=== PATIENT | female | born 1995 | race Two or more races ===

== ENCOUNTER 2018-12-09 02:57 | Emergency (ER) | payer MEDICAID ==
[~2018-12-09] VITALS: Ht 160 cm; Wt 72.6 kg
[2018-12-09 08:48] VITALS: BP 119/69
== END 2018-12-09 09:19 | disposition home or self-care (01) ==
LOC: ER 02:57 → EDBD 02:57 → ER 09:19
DX: S40.012A Contusion of left shoulder, initial encounter (principal); M54.2 Cervicalgia; R51 Headache; Z90.49 Acquired absence of other specified parts of digestive tract; Z88.0 Allergy status to penicillin; V43.62XA Car passenger injured in collision with other type car in traffic accident, initial encounter; Y93.89 Activity, other specified; Y92.488 Other paved roadways as the place of occurrence of the external cause; Y99.8 Other external cause status
CPT/HCPCS: 70450; 71045; 72125; 73000; 73030

== ENCOUNTER 2019-07-14 17:56 | Inpatient (IN) | payer MEDICAID ==
[~2019-07-14] VITALS: Ht 152.4 cm; Wt 87.0 kg
[2019-07-14 18:40] LABS: Urine Bacteria FEW /hpf (None Seen); Urine Blood 3+ /uL (Negative); Urine Mucus FEW (None Seen); Urine Specific Gravity 1.028 (1.001-1.035); Urine WBC 7 /hpf (0 - 5)
[2019-07-14 18:52] LABS: Basophils # (auto) 0 10 ^3/uL (0-0.2); Eosinophils # (auto) 0 10 ^3/uL (0-0.8); Lymphocytes # (auto) 1.8 10 ^3/uL (0.4-5.4); Mean Corpuscular Volume 70.2 fL (80.0-100.0); Monocytes # (auto) 0.6 10 ^3/uL (0-1.3); Neutrophils # (auto) 9.1 10 ^3/uL (1.6-8.6); Nucleated Red Blood Cells % 0.1 %
[2019-07-14 18:54] LABS: Basophils % (auto) 0.1 % (0.0-2.0); Hematocrit 37.9 % (36.0-46.0); Lymphocytes % (auto) 15.5 % (10.0-50.0); Mean Corpuscular Hemoglobin 22.2 pg (28.0-32.0); Mean Corpuscular Hgb Conc. 31.6 g/dL (32.0-36.0); Neutrophils % (auto) 79.4 % (37.0-80.0); Platelet Count (auto) 191 10^3/uL (140-450); Red Blood Cells 5.39 10^6/uL (4.0-5.20); Red Cell Distribution Width 15.8 % (11.8-14.3); White Blood Cell 11.5 10^3/uL (4.4-10.8)
[2019-07-14 19:04] LABS: Albumin 3.5 g/dL (3.4-5.0); Calcium 8.4 mg/dL (8.5-10.1); Potassium 3.7 mmol/L (3.5-5.1)
[2019-07-14 19:08] LABS: BUN/Creatinine Ratio 8.3; Bilirubin, Total 0.4 mg/dL (0.2-1.0); Total Protein 8.9 g/dL (6.4-8.2)
[2019-07-14] MEDS ORDERED: MORPHINE SULFATE 4 MG/ML SYR/VIAL IV ONE ×3 (20:00→22:45)
[2019-07-14] MEDS ORDERED: ONDANSETRON HCL 4 MG/2 ML VIAL IV ONE ×4 (20:00→23:15)
[2019-07-14] MEDS ORDERED: cefTRIAXone 1GM/50ML D5W 50 ML IV ONE ×2 (20:15→20:30)
[2019-07-14] MEDS ORDERED: metroNIDAZOLE 500MG/100ML 100 ML IV ONE ×2 (20:15→20:30)
[2019-07-14] MEDS ORDERED: SODIUM CHLORIDE 0.9% 1,000 ML IV ONE (20:45)
[2019-07-15] VITALS (8 sets, daily range): BP systolic 111–129; BP diastolic 63–77
[2019-07-15] MEDS: SODIUM CHLORIDE 0.9% 1,000 ML IV SCH ×2 (01:04→17:44)
[2019-07-15] MEDS ORDERED: MORPHINE SULFATE 4 MG/ML SYR/VIAL IV PRN (01:15)
[2019-07-15] MEDS ORDERED: ACETAMINOPHEN 325 MG TAB PO PRN (01:15)
[2019-07-15] MEDS ORDERED: HYDROcodone-ACET 5/325MG TAB PO PRN (01:15)
[2019-07-15] MEDS ORDERED: ONDANSETRON HCL 4 MG/2 ML VIAL IV PRN (01:15)
[2019-07-15] MEDS: metroNIDAZOLE 500MG/100ML 100 ML IV SCH ×3 (05:12→22:50)
[2019-07-15 07:50] LABS: Basophils # (auto) 0 10 ^3/uL (0-0.2); Eosinophils # (auto) 0 10 ^3/uL (0-0.8); Eosinophils % (auto) 0.5 % (0.0-7.0); Mean Corpuscular Hemoglobin 22.2 pg (28.0-32.0); Mean Corpuscular Hgb Conc. 31.3 g/dL (32.0-36.0); Monocytes # (auto) 0.6 10 ^3/uL (0-1.3); Red Cell Distribution Width 15.7 % (11.8-14.3)
[2019-07-15 07:53] LABS: Basophils % (auto) 0.2 % (0.0-2.0); Hematocrit 34.2 % (36.0-46.0); Hemoglobin 10.7 g/dL (12.2-16.2); Lymphocytes # (auto) 2.3 10 ^3/uL (0.4-5.4); Lymphocytes % (auto) 32.7 % (10.0-50.0); Mean Corpuscular Volume 70.8 fL (80.0-100.0); Monocytes % (auto) 9.2 % (0.0-12.0); Neutrophils % (auto) 57.4 % (37.0-80.0); Nucleated Red Blood Cells % 0.2 %; Platelet Count (auto) 174 10^3/uL (140-450); Red Blood Cells 4.83 10^6/uL (4.0-5.20)
[2019-07-15 08:19] LABS: Potassium 3.8 mmol/L (3.5-5.1)
[2019-07-15 08:24] LABS: BUN/Creatinine Ratio 8.5; Calcium 7.8 mg/dL (8.5-10.1)
[2019-07-15] MEDS ORDERED: MORPHINE SULF INJ 2 MG/ML SYRINGE 1ML IV PRN (15:45)
[2019-07-15 16:16] LABS: INR 1.08 (0.9-1.15)
[2019-07-15] MEDS ORDERED: cefTRIAXone 1GM/50ML D5W 50 ML IV SCH (21:00)
[2019-07-15] MEDS: PANTOPRAZOLE 40 MG TAB PO SCH (21:15)
[2019-07-16 05:00] VITALS: BP 125/78
[2019-07-16] MEDS: metroNIDAZOLE 500MG/100ML 100 ML IV SCH ×2 (05:11→14:00)
[2019-07-16 07:51] LABS: Basophils # (auto) 0 10 ^3/uL (0-0.2); Basophils % (auto) 0.3 % (0.0-2.0); Hemoglobin 10.7 g/dL (12.2-16.2); Lymphocytes # (auto) 1.8 10 ^3/uL (0.4-5.4); Lymphocytes % (auto) 38.4 % (10.0-50.0); Mean Corpuscular Hemoglobin 22.1 pg (28.0-32.0); Monocytes # (auto) 0.4 10 ^3/uL (0-1.3)
[2019-07-16 07:55] LABS: Eosinophils # (auto) 0.1 10 ^3/uL (0-0.8); Eosinophils % (auto) 1.2 % (0.0-7.0); Hematocrit 34.1 % (36.0-46.0); Mean Corpuscular Hgb Conc. 31.2 g/dL (32.0-36.0); Mean Corpuscular Volume 70.6 fL (80.0-100.0); Monocytes % (auto) 9.7 % (0.0-12.0); Neutrophils # (auto) 2.3 10 ^3/uL (1.6-8.6); Neutrophils % (auto) 50.4 % (37.0-80.0); Nucleated Red Blood Cells % 0.1 %; Platelet Count (auto) 153 10^3/uL (140-450); Red Blood Cells 4.83 10^6/uL (4.0-5.20); Red Cell Distribution Width 15.8 % (11.8-14.3); White Blood Cell 4.6 10^3/uL (4.4-10.8)
[2019-07-16 08:00] VITALS: BP 104/75
[2019-07-16 08:05] LABS: Albumin 2.9 g/dL (3.4-5.0); Potassium 3.7 mmol/L (3.5-5.1)
[2019-07-16 08:07] LABS: BUN/Creatinine Ratio 8.6
[2019-07-16 08:10] LABS: Bilirubin, Total 0.3 mg/dL (0.2-1.0); Total Protein 7.2 g/dL (6.4-8.2)
[2019-07-16] MEDS ORDERED: LIDOCAINE VISCOUS 2% 15ML UD ONE (08:52)
[2019-07-16] MEDS ORDERED: SODIUM CHLORIDE LOCK 10 ML ONE (08:52)
[2019-07-16] MEDS ORDERED: diphenhdrAMINE HCL 50 MG/1 ML VL ONE (08:52)
[2019-07-16 09:00] VITALS: BP 104/75
[2019-07-16] MEDS: PANTOPRAZOLE 40 MG TAB PO SCH (10:00)
[2019-07-16] MEDS: SODIUM CHLORIDE 0.9% 1,000 ML IV SCH (10:24)
[2019-07-16] MEDS: fentaNYL CITRATE 100 MCG/2 ML VL ONE ×2 (10:35→10:38)
[2019-07-16] MEDS: MIDAZOLAM HCL 5 MG/ML-1ML VIAL ONE ×2 (10:35→10:38)
[2019-07-16 13:00] VITALS: BP 107/65
[2019-07-16] MEDS ORDERED: PANT40T PO (15:11)
[2019-07-16 16:53] VITALS: BP_SYST 102; BP_SYST 103; BP_DIAS 63; BP_DIAS 73
[2019-07-18 11:21] LABS: Hepatitis A Ab IgM Negative
[2019-07-18 11:24] LABS: Hepatitis B Core IgM Negative; Hepatitis B Surface Antigen Negative (Negative); Hepatitis C Antibody Negative (Negative)
== END 2019-07-16 19:00 | disposition home or self-care (01) | DRG 241 ==
LOC: ER 17:56 → TELE-CENTR 17:57 → UNDOADMIN 17:57 → TELE 17:57
PROVIDERS: ADMIT Hospitalist; ATTEND Internal Medicine
PROC: 0DB68ZX Excision of Stomach, Via Natural or Artificial Opening Endoscopic, Diagnostic (ICD-10-PCS; principal; 2019-07-16 10:33)
DX: K29.70 Gastritis, unspecified, without bleeding (principal); A05.9 Bacterial foodborne intoxication, unspecified; K52.9 Noninfective gastroenteritis and colitis, unspecified; K62.5 Hemorrhage of anus and rectum; N83.209 Unspecified ovarian cyst, unspecified side; Z88.0 Allergy status to penicillin; Z79.899 Other long term (current) drug therapy; Z90.49 Acquired absence of other specified parts of digestive tract; Z82.49 Family history of ischemic heart disease and other diseases of the circulatory system; Z83.3 Family history of diabetes mellitus; Z80.43 Family history of malignant neoplasm of testis
CPT/HCPCS: 36415; 43239; 74176; 76856; 80048; 80053; 80074; 80320; 81001; 84702; 85025; 85610; 96365; 96367; 96375; G0378; J0696; J2250; J2405; J3490

== ENCOUNTER 2021-07-02 22:41 | Emergency (ER) | payer MEDICAID ==
[~2021-07-02] VITALS: Ht 160 cm; Wt 104.3 kg
[~2021-07-02 22:41] MED LIST: PANT40T PO
[2021-07-03] MEDS ORDERED: MAGNESIUM CITRATE SOLUTION 300 ML BTL PO ONE (01:00)
[2021-07-03 01:26] LABS: Urine Bacteria FEW /hpf (None Seen); Urine Blood Negative /uL (Negative); Urine Mucus FEW (None Seen); Urine Specific Gravity 1.044 (1.001-1.035); Urine WBC 7 /hpf (0 - 5)
[2021-07-03 01:36] LABS: Alcohol, Urine < 3.0 mg/dL (0-10); Amphetamine Screen, Urine NEGATIVE (NEGATIVE); Barbiturate Scree,Urine NEGATIVE (NEGATIVE); Benzodiazephine Screen, Urine NEGATIVE (NEGATIVE); Cannabinoid Screen, Urine NEGATIVE (NEGATIVE); Cocaine Screen, Urine NEGATIVE (NEGATIVE); Opiate Scree,Urine NEGATIVE (NEGATIVE); Phencyclidine Screen, Urine NEGATIVE (NEGATIVE)
[2021-07-03] MEDS ORDERED: ONDANSETRON HCL 4 MG/2 ML VIAL IV ONE (02:00)
[2021-07-03] MEDS ORDERED: SODIUM CHLORIDE 0.9% 1,000 ML IV ONE (02:00)
[2021-07-03 02:49] LABS: Basophils # (auto) 0 10 ^3/uL (0-0.2); Eosinophils # (auto) 0.1 10 ^3/uL (0-0.8); Lymphocytes # (auto) 2.3 10 ^3/uL (0.4-5.4); Lymphocytes % (auto) 25.6 % (10.0-50.0); Mean Corpuscular Hemoglobin 16.2 pg (28.0-32.0); Monocytes # (auto) 0.7 10 ^3/uL (0-1.3); Monocytes % (auto) 7.8 % (0.0-12.0); Neutrophils % (auto) 64.7 % (37.0-80.0)
[2021-07-03 02:50] LABS: Basophils % (auto) 0.4 % (0.0-2.0); Eosinophils % (auto) 1.5 % (0.0-7.0); Hematocrit 26.2 % (36.0-46.0); Hemoglobin 7.7 g/dL (12.2-16.2); Mean Corpuscular Hgb Conc. 29.3 g/dL (32.0-36.0); Mean Corpuscular Volume 55.4 fL (80.0-100.0); Neutrophils # (auto) 5.8 10 ^3/uL (1.6-8.6); Nucleated Red Blood Cells % 0.1 %; Red Blood Cells 4.74 10^6/uL (4.0-5.20); Red Cell Distribution Width 19.2 % (11.8-14.3)
[2021-07-03 03:06] LABS: Albumin 3.5 g/dL (3.4-5.0); Calcium 8.8 mg/dL (8.5-10.1); Potassium 3.2 mmol/L (3.5-5.1)
[2021-07-03 03:09] LABS: BUN/Creatinine Ratio 17.2
[2021-07-03 03:12] LABS: Bilirubin, Total 0.5 mg/dL (0.2-1.0); Total Protein 8.4 g/dL (6.4-8.2)
[2021-07-03] MEDS ORDERED: IOHEXOL 300 MG/ML 100ML BOTTLE IJ ONE (03:39)
[2021-07-03 05:32] VITALS: BP 132/86
[2021-07-03] MEDS ORDERED: KETOROLAC TROMETH 30 MG/ML 1ML VIAL IV ONE (05:45)
[2021-07-03] MEDS ORDERED: DOCU-94 PO (05:54)
[2021-07-03] MEDS ORDERED: ONDA-144 PO (05:54)
[2021-07-03] MEDS ORDERED: CIPR-173 PO (05:54)
== END 2021-07-03 06:12 | disposition home or self-care (01) ==
LOC: ER 22:41
DX: K52.9 Noninfective gastroenteritis and colitis, unspecified (principal); K59.00 Constipation, unspecified; Z90.49 Acquired absence of other specified parts of digestive tract; Z32.02 Encounter for pregnancy test, result negative; Z88.0 Allergy status to penicillin
CPT/HCPCS: 36415; 74177; 80053; 80307; 81001; 81025; 85025; 96361; 96374; 96375; 99285; J1885; J2405; J7030; Q9967

== ENCOUNTER 2024-09-22 14:57 | Inpatient (IN) | payer MEDICAID ==
[~2024-09-22] VITALS: Ht 160 cm; Wt 94.1 kg
[~2024-09-22 14:57] MED LIST changes: +CIPR-173 PO; +DOCU-94 PO; +ONDA-144 PO
--- NOTE | 2024-09-22 15:10 | ED.PDOC ---
HPI Comments 29 y/o F, presents to the ED for CC of palpitations. 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 Patient denies shortness of breath, chest pain, headache, nausea, or vomiting. Time Seen by MD: 15:10 Primary Care Provider: UNKNOWN Reviewed Notes: Nurses Notes, Medications, Allergies Allergies: Coded Allergies: Penicillins (Verified Allergy, Severe, 12/09/18) Home Meds Active Scripts Ciprofloxacin Hcl (Cipro) 500 Mg Tab, 500 MG PO BID, #14 TAB Prov:ZENIA MENDES MD 07/03/21 Docusate Sodium (Colace) 100 Mg Cap, 1 CAP PO BID for 5 Days, #10 CAP Prov:ZENIA MENDES MD 07/03/21 Ondansetron (Zofran) 4 Mg Tab, 4 MG PO Q8HPRN PRN, #15 MG Prov:ZENIA MENDES MD 07/03/21 Pantoprazole Sodium Sesquihydr (Pantoprazole Sodium) 40 Mg Tab, 40 MG PO BID, #28 TAB Prov:MARIA DEL CARMEN MARTINEZ MD 07/16/19 Information Source: Patient Mode of Arrival: Ambulatory Severity: Moderate Timing: Minutes Duration: Since onset Prehospital treatment: None Onset: At Rest Cardiac Risk Factors: None PE Risk Factors: None History of: None Modifying Factors: Nothing Associated Signs and Symptoms: Palpitations Past Medical History Past Medical History (Other): anemia, irregular menses Surgical History: Cholecystectomy SOURCING SPECIALIST History: No Pertinent SOURCING SPECIALIST History Family History Family History: Reviewed,noncontributory to illness Social History Smoker: Non-Smoker Alcohol: Occasionally Drugs: Denies Drug Use Lives In: Home Constitutional: denies: chills, diaphoresis, fatigue, fever, malaise, sweats, weakness, others EENTM: denies: blurred vision, double vision, ear bleeding, ear discharge, ear drainage, ear pain, ear ringing, eye pain, eye redness, hearing loss, mouth pain, mouth swelling, nasal discharge, nose bleeding, nose congestion, nose pain, photophobia, tearing, throat pain, throat swelling, voice changes, others Respiratory: denies: cough, hemoptysis, orthopnea, SOB at rest, shortness of b reath, SOB with excertion, stridor, wheezing, others Cardiovascular: reports: palpitations; denies: chest pain, dizzy spells, diaphoresis, Dyspnea on exertion, edema, irregular heart beat, left arm pain, lightheadedness, PND, syncope, others Gastrointestinal: denies: abdomen distended, abdominal pain, blood streaked b owels, constipated, diarrhea, dysphagia, difficulty swallowing, hematemesis, melena, nausea, poor appetite, poor fluid intake, rectal bleeding, rectal pain, vomiting, others Genitourinary: denies: abnormal vagina bleeding, burning, dyspareunia, dysuria, flank pain, frequency, hematuria, incontinence, pain, , vagina discharge, urgency, others Neurological: denies: dizziness, fainting, headache, left sided numbness, left sided weakness, numbness, paresthesia, pre-existing deficit, right sided numbness, right sided weakness, seizure, speech problems, tingling, tremors, weakness, others Musculoskeletal: denies: back pain, gout, joint pain, joint swelling, muscle pain, muscle stiffness, neck pain, others Integumetry: denies: bruises, change in color, change in hair/nails, dryness, laceration, lesions, lumps, rash, wounds, others Allergic/Immunocompromised: denies: Difficulty Healing, Frequent Infections, Hives, Itching, others Hematologic/Lymphatic: denies: anemia, blood clots, easy bleeding, easy brui sing, swollen glands, others Endocrine: denies: excessive hunger, excessive sweating, excessive thirst, ex cessive urination, flushing, intolerance to cold, intolerance to heat, unexplained weight gain, unexplained weight loss, others Psychiatric: denies: anxiety, bipolar disorder, depression, hopeless, panic disorder, schizophrenia, sleepless, suicidal, others All Other Systems: Reviewed and Negative Physical Exam General Appearance: No Apparent Distress, Normal HEENT: Normal ENT Inspection, Pharynx Normal, TMs Normal Neck: Full Range of Motion, Non-Tender, Normal, Normal Inspection Respiratory: Chest Non-Tender, Lungs Clear, No Accessory Muscle Use, No Respiratory Distress, Normal Breath Sounds Cardiovascular: No Edema, No Murmur, No Gallop, Normal Peripheral Pulses, Tachycardia Breast Exam: Deferred Gastrointestinal: No Organomegaly, Non Tender, No Pulsatile Mass, Normal Bowel Sounds, Soft Genitalia: Deferred Pelvic: Deferred Rectal: Deferred Extremities: No calf tenderness, Normal capillary refill, Normal inspection, Normal range of motion, Non-tender, No pedal edema Musculoskeletal : Apperance: Normal Neurologic: Alert, field advisor II-XII nml as Tested, No Motor Deficits, Normal Affect, Normal Mood, No Sensory Deficits Cerebellar Function: Normal Reflexes: Normal Skin: Dry, Normal Color, Warm Lymphatic: No Adenopathy EKG EKG : Pulse Rate (adult): 118 [place]: Normal Cardiac Rhythm: ST Block: None Hypertrophy: None ST: Normal Was a procedure done? Was a procedure done?: No CP Differential Dx Differential Diagnosis: A-fib, A-Flutter, Anxiety / Panic Attack, Electrolyte Disorder, Heart Failure, Hyperthyroidism, Hyperventilation, Hypoxia, MAT, NV, PSVT, PVC's, Sinus Tachycardia, Torsades De Pointes, Ventricular Dysrhythmia, V- Fib, V-Tach, WPW, Other (anemia, hypovolemia, heat exhaust) X-Ray, Labs, Meds, VS Vital Signs Date Time Temp Pulse Resp B/P (MAP) Pulse Ox O2 Delivery O2 Flow Rate FiO2 09/22/24 16:07 110 09/22/24 15:10 98.1 125 17 147/97 (114) 96 98.1 09/22/24 15:10 118 09/22/24 15:03 118 Lab Test 09/22/24 16:29 09/22/24 15:07 Range/Units Troponin I High Sensitivity Pending < 3 L </=34 ng/L White Blood Count 10.2 4.4-10.8 10^3/uL Red Blood Count 4.29 4.0-5.20 10^6/uL Hemoglobin 7.3 L 12.2-16.2 g/dL Hematocrit 25.2 L 36.0-46.0 % Mean Corpuscular Volume 58.7 L 80.0-100.0 fL Mean Corpuscular Hemoglobin 17.1 L 28.0-32.0 pg Mean Corpuscular Hemoglobin Concent 29.1 L 32.0-36.0 g/dL Red Cell Distribution Width 18.9 H 11.8-14.3 % Platelet Count 261 140-450 10^3/uL Mean Platelet Volume 9.7 6.9-10.8 fL Neutrophils (%) (Auto) 37.0-80.0 % Lymphocytes (%) (Auto) 10.0-50.0 % Monocytes (%) (Auto) 0.0-12.0 % Basophils (%) (Auto) 0.0-2.0 % Neutrophils # (Auto) 1.6-8.6 10 ^3/uL Lymphocytes # (Auto) 0.4-5.4 10 ^3/uL Monocytes # (Auto) 0-1.3 10 ^3/uL Differential Total Cells Counted 100.0 100 Neutrophils % (Manual) 5 L 37.0-80.0 Band Neutrophils % (Manual) 63 Lymphocytes % (Manual) 26 10.0-50.0 Monocytes % (Manual) 2 0-12 Eosinophils % (Manual) 4 0-7 Basophils % (Manual) 0 0.0-2.0 Metamyelocytes % (manual) 0 Myelocytes % (Manual) 0 Promyelocytes % (Manual) 0 Blast Cells % (Manual) 0 Reactive Lymphocytes 0 Platelet Estimate Adequate Large Platelets Few Polychromasia Slight Hypochromasia (manual) Moderate Poikilocytosis (manual) Moderate Anisocytosis (manual) Slight Microcytosis Moderate Macrocytosis Slight Tear Drop Cells Few Ovalocytes Few Stomatocytes Few Schistocytes Few Sodium Level 141 136-145 mmol/L Potassium Level 3.5 3.5-5.1 mmol/L Chloride Level 106 98-107 mmol/L Carbon Dioxide Level 26 20-31 mmol/L Anion Gap 9 5-15 Blood Urea Nitrogen 8 L 9-23 mg/dL Creatinine 0.60 0.550-1.02 mg/dL Glomerular Filtration Rate Calc 125 >90 mL/min BUN/Creatinine Ratio 13.3 10.0-20.0 Serum Glucose 152 H 74-106 mg/dL Calcium Level 9.3 8.7-10.4 mg/dL Time of 1ST Reevaluation: 15:40 Reevaluation 1ST: Unchanged Time of 2ND Reevaluation: 16:33 Reevaluation 2ND: Improved (pt would like to sign the waiver for xray. i will cancel the preg test) Patient Education/Counseling: Diagnosis, Treatment Family Education/Counseling: No Family Present Comments pt has heavy irregular periods, although not actively bleeding now, she has been bleeding. she is now anemic again, with hg 7. she is symptomatic, so will be admitted for further evaluation and possibly transfusion Departure 1 Departure Time of Disposition: 16:53 Impression: Primary Impression: Palpitations Additional Impressions: Menometrorrhagia Anemia Disposition: 09 ADMITTED INPATIENT Admit to: Tele Condition: Serious Discharged With: Self Critical Care Note Critical Care Time?: Yes (55 min-critical care time only) Critical care comment: due to concerns for deterioration of patient's condition, the care required my highest level of attention and readiness. i assessed the patient's condition, reviewed relevant documents, communicated with medical personnel, ordered the proper tests and treatments, reassessed for results and response to treatments, spoke to family and consultants and formulated a plan of care Stability Stability form required: No Heart Score Heart Score: Heart Score Response (Comments) Value History N/A 0 EKG N/A 0 Age N/A 0 Risk Factors N/A 0 Troponin N/A 0 Total 0 I personally scribed for ARAM STARKEY MD ([email or web address]) on 09/22/24 at 15:10. Electronically submitted by Kimberley Johnston ([email or web address]). ARAM STARKEY MD Sep 22, 2024 15:10
[2024-09-22 15:45] LABS: Hemoglobin 7.3 g/dL (12.2-16.2); Red Cell Distribution Width 18.9 % (11.8-14.3); White Blood Cell 10.2 10^3/uL (4.4-10.8)
[2024-09-22 15:51] LABS: Hematocrit 25.2 % (36.0-46.0); Mean Corpuscular Hemoglobin 17.1 pg (28.0-32.0); Mean Corpuscular Hgb Conc. 29.1 g/dL (32.0-36.0); Mean Corpuscular Volume 58.7 fL (80.0-100.0); Platelet Count (auto) 261 10^3/uL (140-450); Red Blood Cells 4.29 10^6/uL (4.0-5.20)
[2024-09-22 15:53] LABS: Chloride 106 mmol/L (98-107); Potassium 3.5 mmol/L (3.5-5.1); Sodium 141 mmol/L (136-145)
[2024-09-22 15:54] LABS: Anion Gap 9 (5-15); Carbon Dioxide 26 mmol/L (20-31)
[2024-09-22 15:55] LABS: Calcium 9.3 mg/dL (8.7-10.4)
[2024-09-22 15:59] LABS: BUN/Creatinine Ratio 13.3 (10.0-20.0)
[2024-09-22 16:05] LABS: Blood Urea Nitrogen 8 mg/dL (9-23); Glucose 152 mg/dL (74-106)
[2024-09-22 16:06] LABS: Basophils % (manual) 0 (0.0-2.0); Blast Cells 0; Metamyelocytes % 0; Myelocytes % 0; Promyelocytes % 0; Reactive Lymphocytes 0
--- NOTE | 2024-09-22 16:09 | ECG ---
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
[2024-09-22 16:28] LABS: Anisocytosis Slight; Band Neutrophils % (manual) 63; Eosinophils % (manual) 4 (0-7); Hypochromia Moderate; Large Platelets FEW; Lymphocytes % (manual) 26 (10.0-50.0); Macrocytosis Slight; Monocytes % (manual) 2 (0-12); Ovalocytes FEW; Platelet Estimate Adequate; Polychromasia Slight; Stomatocytes Few; Tear Drop Cells FEW
--- NOTE | 2024-09-22 16:50 | DVH ---
CHEST RADIOGRAPH Indication: palp Technique: Single frontal view of the chest was obtained Comparison: None FINDINGS: Lines and Tubes: None Lungs: No focal consolidation. Pleura: No effusion. No pneumothorax. Cardiomediastinal contours: Unremarkable Bones: No acute osseous abnormality. IMPRESSION: 1. No acute cardiopulmonary disease.
--- NOTE | 2024-09-22 17:41 | DVH ---
INDICATION: bleeding TECHNIQUE: Multiple real-time grayscale transabdominal sonographic images along with color and duplex Doppler of the uterus and ovaries were obtained. COMPARISON: None FINDINGS: The uterus measures 6.5 x 4.1 x 2.1 cm. The endometrial stripe not visible The right ovary measures 3.2 x 2.5 x 1.4 cm. Volume of the right ovary is 5.9 cc. Normal right ovar jose arterial flow The left ovary measures 2.6 x 2.5 by 0.8 cm. Left ovarian volume is 2.5 cc. Left 0 arterial flow n ot visualized IMPRESSION: 1. Normal uterus and right ovary. 2. Left ovarian arterial flow not visualized most likely secondary to bowel gas recommend repeat mike dy.
[2024-09-22] MEDS: SODIUM CHLORIDE 0.9% 1,000 ML IV ONE (22:48)
[2024-09-22 23:58] LABS: Urine Bacteria None Seen /hpf (None Seen)
[2024-09-23] VITALS (13 sets, daily range): BP systolic 113–121; BP diastolic 54–75; PULSE 74–96; RESP 14–18; TEMP 98–98.6; O2SAT 96–99
[2024-09-23 00:14] LABS: Urine Blood 3+ /uL (Negative); Urine Clarity Turbid (Clear); Urine Color Colorless (Yellow); Urine Protein, UAD Negative (Negative); Urine Specific Gravity 1.025 (1.001-1.035); Urine Squamous Epithelial Cell FEW /hpf (<5); Urine Urobilinogen Normal (Negative); Urine WBC 5 /HPF (0-5); Urine pH 6.5 (5.0-9.0)
--- NOTE | 2024-09-23 04:28 | DVHHPRES ---
History of Present Illness Resident Creating Document: ALEXANTHONYJANET RESIDENT History of Present Illness Patient is a 29-year-old female with past medical history of irregular menstrual cycles heavy bleeding presented to the ED with a chief complaint of weakness and shortness of breath. Patient reported that today in the afternoon around 3:00 p.m. she was having dinner with the family and reported that she was not feeling good and when she checked her vitals she had elevated heart rate 120-130 and was feeling short of breath after she walked a flight of stairs to 2nd level in the house. Patient reports that she has a history of irregular menstrual cycles since menarche at age around 12-13 and has heavy menstrual cycles. She has had 3-4 blood transfusions total in her life because of low hemoglobin. Patient is currently on her menstrual cycle. Reports that sometimes menstrual cycle last up to 20-25 days and it is irregular. Patient is not in a relationship currently Past medical history: As per HPI Past surgical history none Social history: Patient denies smoking, alcohol, drug use Home medication Review of Systems Review of Systems Patient seen and examined at the bedside Does not report of any abdominal pain, burning micturition, headache, chest pain, palpitation Denies shortness of breath Allergies: Coded Allergies: Penicillins (Verified Allergy, Severe, 12/09/18) Exam Vital Signs Vital Signs Date Time Temp Pulse Resp B/P (MAP) Pulse Ox O2 Delivery O2 Flow Rate FiO2 09/23/24 02:00 96 14 118/75 (89) 99 09/22/24 17:34 98.7 98.7 09/22/24 17:34 Room Air Exam Gen - no pallor, no icterus, no cyanosis, no clubbing, no LAD, no edema . Skin - Patients skin is warm and dry. HEENT - normocephalic, atraumatic, moist mucous membranes. Neck - full ROM, no LAD, no JVD Pulmonary - B/L equal breath sounds, no crackles, no wheezing, no stridor. cardiovascular - regular S1,S2 heard, no added sounds, no murmurs heard. peripheral pulses normal radial 2+, pedal 2+. capillary refill normal <2 secs. GI - soft, nontender abdomen. no hepatospleenomegaly. Bowel sounds normoactive Neurological - Patient is A/O X 3 . Bilateral upper extremity strength 5/5, bilateral lower extremity strength 5/5, no facial droop, normal speech, no tremor, no sensory deficiets. Labs/Xrays Labs Test 09/22/24 18:05 09/22/24 15:07 09/22/24 11:50 Range/Units Troponin I High Sensitivity < 3 L </=34 ng/L White Blood Count 10.2 4.4-10.8 10^3/uL Red Blood Count 4.29 4.0-5.20 10^6/uL Hemoglobin 7.3 L 12.2-16.2 g/dL Hematocrit 25.2 L 36.0-46.0 % Mean Corpuscular Volume 58.7 L 80.0-100.0 fL Mean Corpuscular Hemoglobin 17.1 L 28.0-32.0 pg Mean Corpuscular Hemoglobin Concent 29.1 L 32.0-36.0 g/dL Red Cell Distribution Width 18.9 H 11.8-14.3 % Platelet Count 261 140-450 10^3/uL Mean Platelet Volume 9.7 6.9-10.8 fL Neutrophils (%) (Auto) 37.0-80.0 % Lymphocytes (%) (Auto) 10.0-50.0 % Monocytes (%) (Auto) 0.0-12.0 % Basophils (%) (Auto) 0.0-2.0 % Neutrophils # (Auto) 1.6-8.6 10 ^3/uL Lymphocytes # (Auto) 0.4-5.4 10 ^3/uL Monocytes # (Auto) 0-1.3 10 ^3/uL Differential Total Cells Counted 100.0 100 Neutrophils % (Manual) 5 L 37.0-80.0 Band Neutrophils % (Manual) 63 Lymphocytes % (Manual) 26 10.0-50.0 Monocytes % (Manual) 2 0-12 Eosinophils % (Manual) 4 0-7 Basophils % (Manual) 0 0.0-2.0 Metamyelocytes % (manual) 0 Myelocytes % (Manual) 0 Promyelocytes % (Manual) 0 Blast Cells % (Manual) 0 Reactive Lymphocytes 0 Platelet Estimate Adequate Large Platelets Few Polychromasia Slight Hypochromasia (manual) Moderate Poikilocytosis (manual) Moderate Anisocytosis (manual) Slight Microcytosis Moderate Macrocytosis Slight Tear Drop Cells Few Ovalocytes Few Stomatocytes Few Schistocytes Few Sodium Level 141 136-145 mmol/L Potassium Level 3.5 3.5-5.1 mmol/L Chloride Level 106 98-107 mmol/L Carbon Dioxide Level 26 20-31 mmol/L Anion Gap 9 5-15 Blood Urea Nitrogen 8 L 9-23 mg/dL Creatinine 0.60 0.550-1.02 mg/dL Glomerular Filtration Rate Calc 125 >90 mL/min BUN/Creatinine Ratio 13.3 10.0-20.0 Serum Glucose 152 H 74-106 mg/dL Calcium Level 9.3 8.7-10.4 mg/dL Urine Color Colorless Yellow Urine Clarity Turbid H Clear Urine pH 6.5 5.0-9.0 Urine Specific [place] 1.025 1.001-1.035 Urine Protein Negative Negative Urine Ketones Negative Negative Urine Blood 3+ H Negative /uL Urine Nitrite Negative Negative Urine Bilirubin Negative Negative Urine Urobilinogen Normal Negative mg/dL Urine Leukocyte Esterase Negative Negative /uL Urine RBC 976 0 - 4 /hpf Urine Microscopic WBC 5 0-5 /HPF Urine Squamous Epithelial Cells Few <5 /hpf Urine Bacteria None seen None Seen /hpf Urine Glucose Normal Normal mg/dL Assessment/Plan Assessment/Plan Generalized weakness Symptomatic anemia Microcytic hypochromic anemia daily to iron-deficiency Menorrhagia - monitor CBC - initial pelvic ultrasound shows normal uterus and right ovary, ovarian arterial flow not visualized likely secondary to bowel gas, repeat exam - OBGYN consulted - blood transfusion if hemoglobin goes below 7 - iron panel and ferritin pending - IV fluids PUD prophylaxis: Famotidine Goals of care discussed with the patient for over 21 minutes. Full code Time spent: 39 minutes Plan discussed with Dr. Diego Plan discussed with: Patient My Orders Orders - ESTEPHANIA JOHNSON RESIDENT Procedure Category Date Status Time Admit ADMIT 09/22/24 Transmitted 22:13 Notify Of Changes XUAN 09/22/24 In Process From Base 22:13 Complete Blood Count LAB 09/23/24 Logged 04:00 Basic Metabolic Panel LAB 09/23/24 Logged 04:00 Sodium Chloride 0.9% PHA 09/22/24 In Process 22:15 Iron Panel LAB 09/23/24 Logged 04:00 Ferritin LAB 09/23/24 Logged 04:00 Date of Service: Sep 22, 2024 Billing Provider: JOANN DIEGO MD Common Visit Codes: [id number] INP/OBS CARE (HIGH) Secondary Visit Codes: [id number] CARE PLAN 30 MINUTES ESTEPHANIA JOHNSON RESIDENT Sep 23, 2024 04:28
[2024-09-23 06:13] LABS: Hematocrit 23.3 % (36.0-46.0); Mean Corpuscular Hemoglobin 17.3 pg (28.0-32.0); Mean Corpuscular Hgb Conc. 29.2 g/dL (32.0-36.0); Mean Corpuscular Volume 59.2 fL (80.0-100.0); Platelet Count (auto) 215 10^3/uL (140-450); Red Blood Cells 3.93 10^6/uL (4.0-5.20); Red Cell Distribution Width 18.9 % (11.8-14.3); White Blood Cell 8.7 10^3/uL (4.4-10.8)
[2024-09-23 06:15] LABS: Anion Gap 8 (5-15); Carbon Dioxide 26 mmol/L (20-31); Potassium 3.8 mmol/L (3.5-5.1); Sodium 141 mmol/L (136-145)
[2024-09-23 06:18] LABS: Hemoglobin 6.8 g/dL (12.2-16.2)
[2024-09-23 06:20] LABS: Basophils % (manual) 0 (0.0-2.0); Blast Cells 0; Metamyelocytes % 0; Promyelocytes % 0; Reactive Lymphocytes 0
[2024-09-23 06:21] LABS: % Iron Saturation 4.4 % (15-50)
[2024-09-23 06:22] LABS: BUN/Creatinine Ratio 16.7 (10.0-20.0); Blood Urea Nitrogen 10 mg/dL (9-23)
[2024-09-23 06:30] LABS: Chloride 107 mmol/L (98-107); Glucose 133 mg/dL (74-106)
[2024-09-23 06:39] LABS: Band Neutrophils % (manual) 52; Eosinophils % (manual) 1 (0-7); Lymphocytes % (manual) 22 (10.0-50.0); Monocytes % (manual) 7 (0-12); Myelocytes % 1
[2024-09-23 06:40] LABS: Hypochromia Moderate; Polychromasia Slight; Tear Drop Cells FEW
[2024-09-23 06:41] LABS: Large Platelets FEW; Ovalocytes FEW; Platelet Estimate Adequate
--- NOTE | 2024-09-23 07:45 | DVH ---
INDICATION: rpt exam, left ovary arterial flow not visualised on previous TECHNIQUE: Multiple real-time grayscale transabdominal sonographic images along with color and duplex Doppler of the uterus and ovaries were obtained. COMPARISON: US PELVIC on DOS: 09/22/24 FINDINGS: The uterus measures 6.8 x 4.8 x 3.9 cm. The endometrium measures 1.2 cm. The right ovary measures 2.5 x 1.9 x 2.5 cm. The left ovary measures 2.5 x 2.6 x 2.4 cm. Subsequent color and duplex Doppler interrogation of the ovaries demonstrated symmetric vascular flow to both ovaries, though this does not exclude the possibility of torsion due to the dual blood suppl y. No free fluid in the culdesac. IMPRESSION: 1. Preservation of vascular flow with normal arterial waveforms in both ovaries.
[2024-09-23] MEDS: FAMOTIDINE 20 MG TAB PO SCH (09:30)
[2024-09-23] MEDS: IRON SUCROSE COMPLEX 110 ML IV SCH (14:07)
--- NOTE | 2024-09-23 15:03 | DVHPNRES ---
Progress Note Date Seen: Sep 23, 2024 Resident Creating Document: TOSHIA OHARA RESIDENT Has the PT tested + for MRSA If YES, has PT been informed?: No Medical Necessity Reason Pt with a Central, PICC or Fol: No Subjective Review of Systems Patient is a 29-year-old female with past medical history of irregular menstrual cycles heavy bleeding presented to the ED with a chief complaint of weakness and shortness of breath. Patient reported that today in the afternoon around 3:00 p.m. she was having dinner with the family and reported that she was not feeling good and when she checked her vitals she had elevated heart rate 120-130 and was feeling short of breath after she walked a flight of stairs to 2nd level in the house. Patient reports that she has a history of irregular menstrual cycles since menarche at age around 12-13 and has heavy menstrual cycles. She has had 3-4 blood transfusions total in her life because of low hemoglobin. Patient is currently on her menstrual cycle. Reports that sometimes menstrual cycle last up to 20-25 days and it is irregular. Patient is not in a relationship currently Past medical history: As per HPI Past surgical history none Social history: Patient denies smoking, alcohol, drug use 09/23/2024: hb 6.8, 2 rbc units given, patient will be assesed by tray server for possible dilation and curettage, NPO tomorrow Objective vital signs Vital Sign Date Time Temp Pulse Resp B/P (MAP) Pulse Ox O2 Delivery O2 Flow Rate FiO2 09/23/24 14:26 98.5 78 16 121/54 (76) 98.5 09/23/24 05:43 99 09/22/24 17:34 Room Air medications Current Medications Medications Dose Ordered Sig/Bill Route Start Time Stop Time Status Last Admin Dose Admin Famotidine 20 mg DAILY PO 09/23/24 10:00 Iron Sucrose 110 ml @ 110 mls/hr DAILY@1200 IV 09/23/24 12:00 09/27/24 12:59 09/23/24 14:07 110 MLS/HR Acetaminophen 325 mg Q4HP PRN PO 09/23/24 09:45 Examination Gen - no pallor, no icterus, no cyanosis, no clubbing, no LAD, no edema . Skin - Patients skin is warm and dry. HEENT - normocephalic, atraumatic, moist mucous membranes. Neck - full ROM, no LAD, no JVD Pulmonary - B/L equal breath sounds, no crackles, no wheezing, no stridor. cardiovascular - regular S1,S2 heard, no added sounds, no murmurs heard. peripheral pulses normal radial 2+, pedal 2+. capillary refill normal <2 secs. GI - soft, nontender abdomen. no hepatospleenomegaly. Bowel sounds normoactive Neurological - Patient is A/O X 3 . Bilateral upper extremity strength 5/5, bilateral lower extremity strength 5/5, no facial droop, normal speech, no tremor, no sensory deficiets. laboratory and microbiology Laboratory Tests 09/23/24 05:26 Test 09/23/24 05:26 Range/Units Serum Glucose 133 H 74-106 mg/dL Problem List/Assessment/Plan Problem List/Assessment/Plan Severe anemia due to bleeding, with need of transfusion Microcytic hypochromic anemia daily to iron-deficiency Menorrhagia Generalized weakness Symptomatic anemia - monitor CBC - initial pelvic ultrasound shows normal uterus and right ovary, ovarian arterial flow not visualized likely secondary to bowel gas, repeat exam - OBGYN consulted: hb 6.8, 2 rbc units given, patient will be assesed by tray server for possible dilation and curettage, NPO tomorrow - blood transfusion if hemoglobin goes below 7 - iron panel and ferritin: iron deficiency: IV iron ordered - IV fluids given PUD prophylaxis: Famotidine Goals of care discussed with the patient for over 21 minutes. Full code Time spent: 39 minutes Plan discussed with Dr. Sullivan Plan discussed with: Patient, Other (rn) My Orders My Orders Orders - TOSHIA OHARA RESIDENT Procedure Category Date Status Time Acetaminophen Tablet PHA 09/23/24 In Process (Tylenol Tablet) 09:45 Regular Diet DIET 09/23/24 Transmitted Lunch Complete Blood Count LAB 09/23/24 Logged 13:45 Date of Service: Sep 23, 2024 Billing Provider: JOSÉ LUIS SULLIVAN MD Common Visit Codes: [id number] INP/OBS CARE(HIGH) TOSHIA OHARA RESIDENT Sep 23, 2024 15:03 JOSÉ LUIS SULLIVAN MD Sep 24, 2024 21:23
[2024-09-23 15:37] LABS: Basophils # (auto) 0 10 ^3/uL (0-0.2); Basophils % (auto) 0.4 % (0.0-2.0); Eosinophils # (auto) 0.1 10 ^3/uL (0-0.8); Eosinophils % (auto) 1.2 % (0.0-7.0); Hematocrit 30.8 % (36.0-46.0); Hemoglobin 9.2 g/dL (12.2-16.2); Lymphocytes # (auto) 2.5 10 ^3/uL (0.4-5.4); Lymphocytes % (auto) 26.8 % (10.0-50.0); Mean Corpuscular Hemoglobin 19.2 pg (28.0-32.0); Mean Corpuscular Hgb Conc. 29.7 g/dL (32.0-36.0); Mean Corpuscular Volume 64.5 fL (80.0-100.0); Monocytes # (auto) 0.7 10 ^3/uL (0-1.3); Monocytes % (auto) 7.6 % (0.0-12.0); Neutrophils # (auto) 6.1 10 ^3/uL (1.6-8.6); Nucleated Red Blood Cells % 0.3 %; Platelet Count (auto) 230 10^3/uL (140-450); Red Blood Cells 4.78 10^6/uL (4.0-5.20); White Blood Cell 9.5 10^3/uL (4.4-10.8)
[2024-09-23 15:38] LABS: Red Cell Distribution Width 24.2 % (11.8-14.3)
[2024-09-23 16:44] LABS: Anisocytosis Moderate; Platelet Estimate Adequate
[2024-09-23 16:45] LABS: Hypochromia Marked; Large Platelets FEW
--- NOTE | 2024-09-23 17:01 | DVH ---
EXAM: XR Chest, 1 View CLINICAL INDICATION: pro op TECHNIQUE: Frontal view of the chest. COMPARISON: XY CHEST PORTABLE on DOS: 09/22/24 FINDINGS: LUNGS AND PLEURAL SPACES: Unremarkable. No consolidation. No pneumothorax. HEART: Unremarkable. No cardiomegaly. MEDIASTINUM: Unremarkable. Normal mediastinal contour. BONES/JOINTS: Unremarkable. No acute fracture. OTHER FINDINGS: . IMPRESSION: No acute cardiopulmonary process.
[2024-09-23 18:02] LABS: Alanine Aminotransferase 60 U/L (7-40); Albumin 4.2 g/dL (3.2-4.8); Alkaline Phosphatase 159 U/L (46-116); Anion Gap 7 (5-15); Aspartate Aminotransferase 61 U/L (<34); BUN/Creatinine Ratio 12.7 (10.0-20.0); Bilirubin, Total 0.6 mg/dL (0.2-1.0); Blood Urea Nitrogen 7 mg/dL (9-23); Calcium 8.6 mg/dL (8.7-10.4); Carbon Dioxide 26 mmol/L (20-31); Chloride 105 mmol/L (98-107); Glucose 111 mg/dL (74-106); Potassium 4.2 mmol/L (3.5-5.1); Sodium 138 mmol/L (136-145); Total Protein 7.8 g/dL (5.7-8.2)
[2024-09-23 18:04] LABS: INR 0.99 (0.9-1.15); Prothrombin Time 10.5 sec (9.3-11.8)
[2024-09-23] MEDS: ceFAZolin 2 GM/D5W50ml 50 ML IV ONE (21:56)
[2024-09-23] MEDS: CLINDAMYCIN 600MG IV 50 ML IV ONE (22:04)
--- NOTE | 2024-09-23 22:12 | DVHINCON2 ---
Date of service: Sep 23, 2024 Referring Physician ER attending Reason for Consultation Severe anemia status post 2 units packed RBCs active uterine bleeding. History of Present Illness Patient is a virgin she has been transfused approximately 5 x 2 this point. She states when she is a tennis shoes on control which did help with the bleeding. Past Medical History Anemia multiple transfusion history Past Surgical History Cholecystectomy without complications Family History Diabetes coronary artery disease Social History Special occasions ETOH Patient Family History: Cardiovascular disease G8 FATHER Diabetes mellitus G8 FATHER FH: testicular cancer G8 FATHER Allergies: Coded Allergies: Penicillins (Verified Allergy, Severe, 12/09/18) Current Medications Current Medications Medications (Trade) Dose Ordered Sig/Bill Route PRN Reason Start Time Stop Time Status Last Admin Famotidine (Pepcid Tablet) 20 mg DAILY PO 09/23/24 10:00 Iron Sucrose 110 ml @ 110 mls/hr DAILY@1200 IV 09/23/24 12:00 09/27/24 12:59 09/23/24 14:07 Acetaminophen (Tylenol Tablet) 325 mg Q4HP PRN PO MILD PAIN (1-3 PAIN SCALE) 09/23/24 09:45 Review of Systems Constitutional: no fever, chill, weight loss HEENT: no eye pain, no hearing loss, no oral lesion, no scleral icterus Heart: no chest pain, no chest pressure Lung: no cough, no dyspnea with exertion Abdomen: see HPI : no pain with urination, normal appearing urine Musculoskeletal: no joint pain, no muscle pain Neurological: no seizure, no loss of sensation, no weakness in extremities Pysch: no depression, no anxiety Derm: no rash, no jaundice Vital Signs Vital Signs Date Time Temp Pulse Resp B/P (MAP) Pulse Ox O2 Delivery O2 Flow Rate FiO2 09/23/24 20:13 98.6 78 18 120/66 (84) 96 98.6 09/22/24 17:34 Room Air Physical Exam SKIN: [] HEENT: [] NECK: [] CARDIAC: [] PULMONARY: [] ABDOMEN: [] MUSCULOSKELETAL: [] NEURO: [] Labs/Diagnostic Data Labs Test 09/23/24 17:12 09/23/24 15:23 09/23/24 05:26 09/22/24 18:05 Range/Units Prothrombin Time 10.5 9.3-11.8 sec Prothrombin Time INR 0.99 0.9-1.15 Sodium Level 138 136-145 mmol/L Potassium Level 4.2 3.5-5.1 mmol/L Chloride Level 105 98-107 mmol/L Carbon Dioxide Level 26 20-31 mmol/L Anion Gap 7 5-15 Blood Urea Nitrogen 7 L 9-23 mg/dL Creatinine 0.55 0.550-1.02 mg/dL Glomerular Filtration Rate Calc 128 >90 mL/min BUN/Creatinine Ratio 12.7 10.0-20.0 Serum Glucose 111 H 74-106 mg/dL Calcium Level 8.6 L 8.7-10.4 mg/dL Total Bilirubin 0.6 0.2-1.0 mg/dL Aspartate Amino Transferase (AST) 61 H <34 U/L Alanine Aminotransferase (ALT) 60 H 7-40 U/L Alkaline Phosphatase 159 H 46-116 U/L Total Protein 7.8 5.7-8.2 g/dL Albumin 4.2 3.2-4.8 g/dL White Blood Count 9.5 4.4-10.8 10^3/uL Red Blood Count 4.78 4.0-5.20 10^6/uL Hemoglobin 9.2 #L 12.2-16.2 g/dL Hematocrit 30.8 #L 36.0-46.0 % Mean Corpuscular Volume 64.5 #L 80.0-100.0 fL Mean Corpuscular Hemoglobin 19.2 L 28.0-32.0 pg Mean Corpuscular Hemoglobin Concent 29.7 L 32.0-36.0 g/dL Red Cell Distribution Width 24.2 H 11.8-14.3 % Platelet Count 230 140-450 10^3/uL Mean Platelet Volume 9.1 6.9-10.8 fL Neutrophils (%) (Auto) 64.0 37.0-80.0 % Lymphocytes (%) (Auto) 26.8 10.0-50.0 % Monocytes (%) (Auto) 7.6 0.0-12.0 % Eosinophils (%) (Auto) 1.2 0.0-7.0 % Basophils (%) (Auto) 0.4 0.0-2.0 % Neutrophils # (Auto) 6.1 1.6-8.6 10 ^3/uL Lymphocytes # (Auto) 2.5 0.4-5.4 10 ^3/uL Monocytes # (Auto) 0.7 0-1.3 10 ^3/uL Eosinophils # (Auto) 0.1 0-0.8 10 ^3/uL Basophils # (Auto) 0 0-0.2 10 ^3/uL Nucleated Red Blood Cells 0.3 % Platelet Estimate Adequate Large Platelets Few Hypochromasia (manual) Marked Anisocytosis (manual) Moderate Microcytosis Marked Differential Total Cells Counted 100.0 100 Neutrophils % (Manual) 17 L 37.0-80.0 Band Neutrophils % (Manual) 52 Lymphocytes % (Manual) 22 10.0-50.0 Monocytes % (Manual) 7 0-12 Eosinophils % (Manual) 1 0-7 Basophils % (Manual) 0 0.0-2.0 Metamyelocytes % (manual) 0 Myelocytes % (Manual) 1 Promyelocytes % (Manual) 0 Blast Cells % (Manual) 0 Reactive Lymphocytes 0 Polychromasia Slight Poikilocytosis (manual) Slight Tear Drop Cells Few Ovalocytes Few Schistocytes Few Reticulocyte Count (auto) 3.70 H 0.5-1.5 % Iron Level 19 L 50-170 ug/dL Total Iron Binding Capacity 432 H 250-425 ug/dL Percent Iron Saturation 4.4 L 15-50 % Ferritin 5.3 L 10-291 ng/mL Troponin I High Sensitivity < 3 L </=34 ng/L Test 09/22/24 15:07 09/22/24 11:50 Range/Units Macrocytosis Slight Stomatocytes Few Urine Color Colorless Yellow Urine Clarity Turbid H Clear Urine pH 6.5 5.0-9.0 Urine Specific [place] 1.025 1.001-1.035 Urine Protein Negative Negative Urine Ketones Negative Negative Urine Blood 3+ H Negative /uL Urine Nitrite Negative Negative Urine Bilirubin Negative Negative Urine Urobilinogen Normal Negative mg/dL Urine Leukocyte Esterase Negative Negative /uL Urine RBC 976 0 - 4 /hpf Urine Microscopic WBC 5 0-5 /HPF Urine Squamous Epithelial Cells Few <5 /hpf Urine Bacteria None seen None Seen /hpf Urine Glucose Normal Normal mg/dL Admitting Diagnosis: Severe anemia no active bleeding dysfunctional uterine bleeding Plan We discussed the risks benefits complications alternatives not limited to instruments syndrome hysterotomy infection bleeding anesthesia, pain damage to adjacent organs associated risks associated with transfusion hepatitis HIV tra nsfusion reaction. All questions answered and encouraged patient adamantly wants to proceed. Plan discussed with: Patient, Other (Patient's father by phone conference) BRANDEN THAPA DO Sep 23, 2024 22:11
--- NOTE | 2024-09-23 22:18 | DVHOP2 ---
Operative Report - 2 Report Details Date: 09/23/24 Preop Diagnosis: Anemia, active dysfunctional uterine bleeding Postop Diagnosis: Same Surgeon: Phil Thapa Anesthesiologist: BO baron Anesthesia: General Consent: The patient was informed of the risks and benefits of the procedure. These include but are not limited to complications of anesthesia, postoperative infection, incomplete relief of symptoms, recurrence of symptoms, damage to blood vessels, nerves and tendons, deep venous thrombosis, pulmonary embolism and possible need for repeat surgery in the future. Complications: None Estimated Blood Loss: 25 cc Fluids: See anesthesia Findings: Hlel-aq-ugscffwv bleed. Indications for Surgery: Severe anemia status post transfusion two 2 units packed RBC active bleeding Name of Procedure Performed Fracture of the D&C with some difficulty secondary to vaginal virginity Procedure Details Procedure Details: He has taken the operating placed in supine position anesthesia without difficulty she was then prepped draped standard strips examiner's anesthesia shows her hymen intact gently and carefully we were able to identify the cervix and grasped with sharp tooth tenaculum serially dilated her gently and then ECC EMC performed she had no intraoperative or postop complications EBL 25 cc patient condition stable but guarded. Vaginal packing placed to be removed in the morning and with the Premarin Specimen: ECC, EMC Condition Good Disposition PACU BRANDEN THAPA DO Sep 23, 2024 22:18
[2024-09-23] MEDS ORDERED: DexAMETHasone SOD PHOS 10MG/1ML VIAL INJ ONE (22:19)
[2024-09-23] MEDS ORDERED: LIDOCAINE 2% (LOCAL ANESTH.) PF 5ml SDV ONE (22:19)
[2024-09-23] MEDS ORDERED: fentaNYL CITRATE 100 MCG/2 ML VL ONE (22:19)
[2024-09-23] MEDS ORDERED: ONDANSETRON HCL 4 MG/2 ML VIAL ONE (22:19)
[2024-09-23] MEDS ORDERED: MIDAZOLAM HCL 2MG/2ML 2ml VIAL (1mg/ml) ONE (22:19)
[2024-09-23] MEDS ORDERED: PROPOFOL 10 MG/ML 20 ML IV ONE (22:20)
[2024-09-23] MEDS: CONJ ESTROGENS 0.625MG/GM VAG CRM 30GM PV ONE (23:11)
[2024-09-23] MEDS: METOCLOPRAMIDE HCL 5MG/ml INJ 2ml VIAL IV ONE (23:15)
[2024-09-23] MEDS: ONDANSETRON HCL 4 MG/2 ML VIAL IV ONE (23:15)
[2024-09-23] MEDS: HYDROmorphone HCL 2 MG/ML VL/or syr IV PRN (23:41)
[2024-09-24 00:02] VITALS: BP 118/78; PULSE 103; RESP 18; TEMP 97; O2SAT 98
[2024-09-24] MEDS: ACETAMINOPHEN 325 MG TAB PO PRN (02:00)
[2024-09-24 05:00] VITALS: BP 125/70; PULSE 104; RESP 20; TEMP 97.9; O2SAT 99
--- NOTE | 2024-09-24 06:32 | DVHPN2 ---
Subjective Progress Notes Subjective Postop day 1 stable improved Objective PHYSICAL EXAM Physical Exam: Pelvic deferred otherwise normal Vital Signs and I&O Vital Signs Date Time Temp Pulse Resp B/P (MAP) Pulse Ox O2 Delivery O2 Flow Rate FiO2 09/24/24 05:00 97.9 104 20 125/70 (88) 99 97.9 09/23/24 23:30 Nasal Cannula 2.0 95 Intake and Output 09/24/24 07:00 Intake Total 1000 ml Balance 1000 ml Intake Other 1000 ml Lab results Laboratory Tests Test 09/22/24 11:50 09/22/24 15:07 09/22/24 16:29 09/22/24 18:05 Range/Units Urine Color Colorless Yellow Urine Clarity Turbid H Clear Urine pH 6.5 5.0-9.0 Urine Specific [place] 1.025 1.001-1.035 Urine Protein Negative Negative Urine Ketones Negative Negative Urine Blood 3+ H Negative /uL Urine Nitrite Negative Negative Urine Bilirubin Negative Negative Urine Urobilinogen Normal Negative mg/dL Urine Leukocyte Esterase Negative Negative /uL Urine RBC 976 0 - 4 /hpf Urine Microscopic WBC 5 0-5 /HPF Urine Squamous Epithelial Cells Few <5 /hpf Urine Bacteria None seen None Seen /hpf Urine Glucose Normal Normal mg/dL White Blood Count 10.2 4.4-10.8 10^3/uL Red Blood Count 4.29 4.0-5.20 10^6/uL Hemoglobin 7.3 L 12.2-16.2 g/dL Hematocrit 25.2 L 36.0-46.0 % Mean Corpuscular Volume 58.7 L 80.0-100.0 fL Mean Corpuscular Hemoglobin 17.1 L 28.0-32.0 pg Mean Corpuscular Hemoglobin Concent 29.1 L 32.0-36.0 g/dL Red Cell Distribution Width 18.9 H 11.8-14.3 % Platelet Count 261 140-450 10^3/uL Mean Platelet Volume 9.7 6.9-10.8 fL Neutrophils (%) (Auto) 37.0-80.0 % Lymphocytes (%) (Auto) 10.0-50.0 % Monocytes (%) (Auto) 0.0-12.0 % Basophils (%) (Auto) 0.0-2.0 % Neutrophils # (Auto) 1.6-8.6 10 ^3/uL Lymphocytes # (Auto) 0.4-5.4 10 ^3/uL Monocytes # (Auto) 0-1.3 10 ^3/uL Differential Total Cells Counted 100.0 100 Neutrophils % (Manual) 5 L 37.0-80.0 Band Neutrophils % (Manual) 63 Lymphocytes % (Manual) 26 10.0-50.0 Monocytes % (Manual) 2 0-12 Eosinophils % (Manual) 4 0-7 Basophils % (Manual) 0 0.0-2.0 Metamyelocytes % (manual) 0 Myelocytes % (Manual) 0 Promyelocytes % (Manual) 0 Blast Cells % (Manual) 0 Reactive Lymphocytes 0 Platelet Estimate Adequate Large Platelets Few Polychromasia Slight Hypochromasia (manual) Moderate Poikilocytosis (manual) Moderate Anisocytosis (manual) Slight Microcytosis Moderate Macrocytosis Slight Tear Drop Cells Few Ovalocytes Few Stomatocytes Few Schistocytes Few Sodium Level 141 136-145 mmol/L Potassium Level 3.5 3.5-5.1 mmol/L Chloride Level 106 98-107 mmol/L Carbon Dioxide Level 26 20-31 mmol/L Anion Gap 9 5-15 Blood Urea Nitrogen 8 L 9-23 mg/dL Creatinine 0.60 0.550-1.02 mg/dL Glomerular Filtration Rate Calc 125 >90 mL/min BUN/Creatinine Ratio 13.3 10.0-20.0 Serum Glucose 152 H 74-106 mg/dL Calcium Level 9.3 8.7-10.4 mg/dL Troponin I High Sensitivity < 3 L < 3 L < 3 L </=34 ng/L Test 09/23/24 05:26 09/23/24 15:23 09/23/24 17:12 Range/Units White Blood Count 8.7 9.5 4.4-10.8 10^3/uL Red Blood Count 3.93 L 4.78 4.0-5.20 10^6/uL Hemoglobin 6.8 *L 9.2 #L 12.2-16.2 g/dL Hematocrit 23.3 L 30.8 #L 36.0-46.0 % Mean Corpuscular Volume 59.2 L 64.5 #L 80.0-100.0 fL Mean Corpuscular Hemoglobin 17.3 L 19.2 L 28.0-32.0 pg Mean Corpuscular Hemoglobin Concent 29.2 L 29.7 L 32.0-36.0 g/dL Red Cell Distribution Width 18.9 H 24.2 H 11.8-14.3 % Platelet Count 215 230 140-450 10^3/uL Mean Platelet Volume 9.5 9.1 6.9-10.8 fL Neutrophils (%) (Auto) 64.0 37.0-80.0 % Lymphocytes (%) (Auto) 26.8 10.0-50.0 % Monocytes (%) (Auto) 7.6 0.0-12.0 % Basophils (%) (Auto) 0.4 0.0-2.0 % Neutrophils # (Auto) 6.1 1.6-8.6 10 ^3/uL Lymphocytes # (Auto) 2.5 0.4-5.4 10 ^3/uL Monocytes # (Auto) 0.7 0-1.3 10 ^3/uL Differential Total Cells Counted 100.0 100 Neutrophils % (Manual) 17 L 37.0-80.0 Band Neutrophils % (Manual) 52 Lymphocytes % (Manual) 22 10.0-50.0 Monocytes % (Manual) 7 0-12 Eosinophils % (Manual) 1 0-7 Basophils % (Manual) 0 0.0-2.0 Metamyelocytes % (manual) 0 Myelocytes % (Manual) 1 Promyelocytes % (Manual) 0 Blast Cells % (Manual) 0 Reactive Lymphocytes 0 Platelet Estimate Adequate Adequate Large Platelets Few Few Polychromasia Slight Hypochromasia (manual) Moderate Marked Poikilocytosis (manual) Slight Microcytosis Moderate Marked Tear Drop Cells Few Ovalocytes Few Schistocytes Few Reticulocyte Count (auto) 3.70 H 0.5-1.5 % Sodium Level 141 138 136-145 mmol/L Potassium Level 3.8 4.2 3.5-5.1 mmol/L Chloride Level 107 105 98-107 mmol/L Carbon Dioxide Level 26 26 20-31 mmol/L Anion Gap 8 7 5-15 Blood Urea Nitrogen 10 7 L 9-23 mg/dL Creatinine 0.60 0.55 0.550-1.02 mg/dL Glomerular Filtration Rate Calc 125 128 >90 mL/min BUN/Creatinine Ratio 16.7 12.7 10.0-20.0 Serum Glucose 133 H 111 H 74-106 mg/dL Calcium Level 9.0 8.6 L 8.7-10.4 mg/dL Iron Level 19 L 50-170 ug/dL Total Iron Binding Capacity 432 H 250-425 ug/dL Percent Iron Saturation 4.4 L 15-50 % Ferritin 5.3 L 10-291 ng/mL Eosinophils (%) (Auto) 1.2 0.0-7.0 % Eosinophils # (Auto) 0.1 0-0.8 10 ^3/uL Basophils # (Auto) 0 0-0.2 10 ^3/uL Nucleated Red Blood Cells 0.3 % Anisocytosis (manual) Moderate Prothrombin Time 10.5 9.3-11.8 sec Prothrombin Time INR 0.99 0.9-1.15 Total Bilirubin 0.6 0.2-1.0 mg/dL Aspartate Amino Transferase (AST) 61 H <34 U/L Alanine Aminotransferase (ALT) 60 H 7-40 U/L Alkaline Phosphatase 159 H 46-116 U/L Total Protein 7.8 5.7-8.2 g/dL Albumin 4.2 3.2-4.8 g/dL Assessment and Plan ASSESSMENT AND PLAN Assessment and Plan s/p 2 units PRBC , Dilation curettage My orders: Orders - BRANDEN THAPA DO Transfuse Blood Product (09/23/24 09:18) Chest Xray 1 View (09/23/24 16:18) Electrocardigram (09/23/24 16:18) Clean Wound (09/24/24 08:00) Cleanse Wound W/ Sterile Gauze (09/23/24 22:52) Regular Diet (09/24/24 Breakfast) VAGINAL PACKING MUST BE REMOVED THIS AM PRIOR TO DC HOME ........We will leave discharge orders and summary to primary admitting team hospitalist. Plan discussed with: Patient Visit Coding OBGYN Date of Service: Sep 24, 2024 Billing Provider: BRANDEN THAPA DO FOREIGN EXCHANGE STUDENT COORDINATOR Common Visit Codes: CONSULTATION ONLY FOREIGN EXCHANGE STUDENT COORDINATOR Consultation Codes: 48164-K/U INPATIENT CONSULT (HIGH) FOREIGN EXCHANGE STUDENT COORDINATOR Procedure Codes: 97172-T&C, DIAG OR THERAPEUTIC BRANDEN THAPA DO Sep 24, 2024 06:32
--- NOTE | 2024-09-24 07:07 | ECG ---
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
[2024-09-24 07:26] LABS: Basophils # (auto) 0 10 ^3/uL (0-0.2); Eosinophils # (auto) 0 10 ^3/uL (0-0.8); Hemoglobin 9.7 g/dL (12.2-16.2); Mean Corpuscular Hgb Conc. 29.7 g/dL (32.0-36.0); Monocytes # (auto) 0.1 10 ^3/uL (0-1.3)
[2024-09-24 07:29] LABS: Basophils % (auto) 0.2 % (0.0-2.0); Hematocrit 32.8 % (36.0-46.0); Lymphocytes # (auto) 1.2 10 ^3/uL (0.4-5.4); Lymphocytes % (auto) 10.7 % (10.0-50.0); Mean Corpuscular Hemoglobin 18.8 pg (28.0-32.0); Mean Corpuscular Volume 63.4 fL (80.0-100.0); Monocytes % (auto) 1.1 % (0.0-12.0); Neutrophils # (auto) 10.3 10 ^3/uL (1.6-8.6); Nucleated Red Blood Cells % 0.2 %; Platelet Count (auto) 244 10^3/uL (140-450); Red Blood Cells 5.18 10^6/uL (4.0-5.20); White Blood Cell 11.7 10^3/uL (4.4-10.8)
[2024-09-24 07:36] LABS: Chloride 104 mmol/L (98-107); Potassium 4.4 mmol/L (3.5-5.1); Red Cell Distribution Width 24.8 % (11.8-14.3); Sodium 138 mmol/L (136-145)
[2024-09-24 07:37] LABS: Anion Gap 9 (5-15); Calcium 9.5 mg/dL (8.7-10.4); Carbon Dioxide 25 mmol/L (20-31)
[2024-09-24 07:43] LABS: BUN/Creatinine Ratio 10.6 (10.0-20.0)
[2024-09-24 07:44] LABS: Blood Urea Nitrogen 7 mg/dL (9-23); Glucose 196 mg/dL (74-106)
[2024-09-24 08:14] LABS: Anisocytosis Moderate; Giant Platelets Few; Hypochromia Marked; Platelet Estimate Adequate
[2024-09-24 08:15] LABS: Large Platelets MODERATE; Ovalocytes FEW; Stomatocytes Few
[2024-09-24 09:00] VITALS: BP 118/73; PULSE 101; RESP 17; TEMP 97.5; O2SAT 99
[2024-09-24] MEDS ORDERED: MEDR5TAB28 PO (09:57)
[2024-09-24] MEDS ORDERED: FERR1TAB36 PO (09:57)
[2024-09-24] MEDS ORDERED: IBUP1TAB4 PO (09:57)
--- NOTE | 2024-09-24 10:45 | DVHDSRES ---
Discharge Summary Date of Admission Resident Creating Document: TOSHIA OHARA RESIDENT Sep 22, 2024 at 22:13 Date of Discharge: Sep 24, 2024 Admitting Diagnosis Severe anemia due to bleeding, with need of transfusion Labs/Diagnostic Data: Laboratory Results Test 09/24/24 05:38 09/23/24 17:12 09/23/24 05:26 09/22/24 18:05 White Blood Count 11.7 10^3/uL (4.4-10.8) Red Blood Count 5.18 10^6/uL (4.0-5.20) Hemoglobin 9.7 g/dL (12.2-16.2) Hematocrit 32.8 % (36.0-46.0) Mean Corpuscular Volume 63.4 fL (80.0-100.0) Mean Corpuscular Hemoglobin 18.8 pg (28.0-32.0) Mean Corpuscular Hemoglobin Concent 29.7 g/dL (32.0-36.0) Red Cell Distribution Width 24.8 % (11.8-14.3) Platelet Count 244 10^3/uL (140-450) Mean Platelet Volume 10.2 fL (6.9-10.8) Neutrophils (%) (Auto) 88.0 % (37.0-80.0) Lymphocytes (%) (Auto) 10.7 % (10.0-50.0) Monocytes (%) (Auto) 1.1 % (0.0-12.0) Eosinophils (%) (Auto) 0.0 % (0.0-7.0) Basophils (%) (Auto) 0.2 % (0.0-2.0) Neutrophils # (Auto) 10.3 10 ^3/uL (1.6-8.6) Lymphocytes # (Auto) 1.2 10 ^3/uL (0.4-5.4) Monocytes # (Auto) 0.1 10 ^3/uL (0-1.3) Eosinophils # (Auto) 0 10 ^3/uL (0-0.8) Basophils # (Auto) 0 10 ^3/uL (0-0.2) Nucleated Red Blood Cells 0.2 % Platelet Estimate Adequate Large Platelets Moderate Giant Platelets Few Hypochromasia (manual) Marked Anisocytosis (manual) Moderate Microcytosis Marked Ovalocytes Few Stomatocytes Few Sodium Level 138 mmol/L (136-145) Potassium Level 4.4 mmol/L (3.5-5.1) Chloride Level 104 mmol/L (98-107) Carbon Dioxide Level 25 mmol/L (20-31) Anion Gap 9 (5-15) Blood Urea Nitrogen 7 mg/dL (9-23) Creatinine 0.66 mg/dL (0.550-1.02) Glomerular Filtration Rate Calc 122 mL/min (>90) BUN/Creatinine Ratio 10.6 (10.0-20.0) Serum Glucose 196 mg/dL (74-106) Calcium Level 9.5 mg/dL (8.7-10.4) Prothrombin Time 10.5 sec (9.3-11.8) Prothrombin Time INR 0.99 (0.9-1.15) Total Bilirubin 0.6 mg/dL (0.2-1.0) Aspartate Amino Transferase (AST) 61 U/L (<34) Alanine Aminotransferase (ALT) 60 U/L (7-40) Alkaline Phosphatase 159 U/L (46-116) Total Protein 7.8 g/dL (5.7-8.2) Albumin 4.2 g/dL (3.2-4.8) Differential Total Cells Counted 100.0 (100) Neutrophils % (Manual) 17 (37.0-80.0) Band Neutrophils % (Manual) 52 Lymphocytes % (Manual) 22 (10.0-50.0) Monocytes % (Manual) 7 (0-12) Eosinophils % (Manual) 1 (0-7) Basophils % (Manual) 0 (0.0-2.0) Metamyelocytes % (manual) 0 Myelocytes % (Manual) 1 Promyelocytes % (Manual) 0 Blast Cells % (Manual) 0 Reactive Lymphocytes 0 Polychromasia Slight Poikilocytosis (manual) Slight Tear Drop Cells Few Schistocytes Few Reticulocyte Count (auto) 3.70 % (0.5-1.5) Iron Level 19 ug/dL (50-170) Total Iron Binding Capacity 432 ug/dL (250-425) Percent Iron Saturation 4.4 % (15-50) Ferritin 5.3 ng/mL (10-291) Troponin I High Sensitivity < 3 ng/L (</=34) Test 09/22/24 15:07 09/22/24 11:50 Macrocytosis Slight Urine Color Colorless (Yellow) Urine Clarity Turbid (Clear) Urine pH 6.5 (5.0-9.0) Urine Specific [place] 1.025 (1.001-1.035) Urine Protein Negative (Negative) Urine Ketones Negative (Negative) Urine Blood 3+ /uL (Negative) Urine Nitrite Negative (Negative) Urine Bilirubin Negative (Negative) Urine Urobilinogen Normal mg/dL (Negative) Urine Leukocyte Esterase Negative /uL (Negative) Urine RBC 976 /hpf (0 - 4) Urine Microscopic WBC 5 /HPF (0-5) Urine Squamous Epithelial Cells Few /hpf (<5) Urine Bacteria None seen /hpf (None Seen) Urine Glucose Normal mg/dL (Normal) Other Laboratory Tests 09/24/24 05:38 Brief Hx & Hospital Course: A 29-year-old female with a history of irregular menses and heavy menstrual bleeding presented to the ED with generalized weakness and shortness of breath. She reported feeling unwell after minimal exertion. Initial evaluation revealed a hemoglobin of 6.8, consistent with microcytic hypochromic anemia likely secondary to iron deficiency due to chronic blood loss. The patient has had three prior transfusions for similar presentations. She received 2 units of PRBC during this admission and was evaluated by PET NUTRITION SPECIALIST. A pelvic ultrasound showed normal uterus and right ovary; however, ovarian arterial flow was not visualized, likely due to bowel gas. The patient underwent dilation and curettage (D&C) with removal of vaginal packing the following morning. Estimated blood loss during the procedure was 25 cc. No intraoperative complications were noted. Condition post-op was stable. Patient was started on IV iron sucrose, famotidine for PUD prophylaxis, and acetaminophen as needed for pain. She was transitioned to oral iron and hormonal therapy upon discharge. Discharge Condition: Stable, tolerating oral intake, ambulating independently. Discharge Medications: Ferrous sulfate 50 mg PO daily 30 days Ibuprofen 400 mg PO TID PRN 10 days Medroxyprogesterone acetate 5 mg PO daily 30 days Follow-Up: PET NUTRITION SPECIALIST outpatient follow-up PCP for continued monitoring of hemoglobin and iron studies Advised to return if symptoms of heavy bleeding, dizziness, or shortness of breath recur Disposition: Home Discharge Instructions: Avoid strenuous activity for a few days. Monitor for signs of recurrent bleeding. Complete medication course and follow up as scheduled. Case discussed with Dr Mills Consults/Reason for consult obgyn due to [facility] Operations or Procedures Preop Diagnosis: Anemia, active dysfunctional uterine bleeding Postop Diagnosis: Same Surgeon: Phil Soni Anesthesiologist: BO baron Anesthesia: General Consent: The patient was informed of the risks and benefits of the procedure. These include but are not limited to complications of anesthesia, postoperative infection, incomplete relief of symptoms, recurrence of symptoms, damage to blood vessels, nerves and tendons, deep venous thrombosis, pulmonary embolism and possible need for repeat surgery in the future. Complications: None Estimated Blood Loss: 25 cc Fluids: See anesthesia Findings: [id number]-owydwrrm bleed. Indications for Surgery: Severe anemia status post transfusion two 2 units packed RBC active bleeding Name of Procedure Performed Fracture of the D&C with some difficulty secondary to vaginal virginity Procedure Details Procedure Details: He has taken the operating placed in supine position anesthesia without difficulty she was then prepped draped standard strips examiner's anesthesia shows her hymen intact gently and carefully we were able to identify the cervix and grasped with sharp tooth tenaculum serially dilated her gently and then ECC EMC performed she had no intraoperative or postop complications EBL 25 cc patient condition stable but guarded. Vaginal packing placed to be removed in the morning and with the Premarin Specimen: ECC, EMC Condition at Discharge: Good Final Diagnosis/Problems List Severe anemia due to bleeding, with need of transfusion Microcytic hypochromic anemia daily to iron-deficiency Menorrhagia Generalized weakness Symptomatic anemia sp D&C Discharge Disposition: Home Discharge Instruct/Medications Diet: Regular Activity: Light activity Follow Up/Referral: [facility] with obgynDr Soni Medications: see prescription Discharge Statement: "Patient was advised to return to the ER or call 911 if any headaches, dizziness, shortness of breath, chest pain, abdominal pain, bleeding, fevers, or worsening of medical condition. Patient was counseled about treatment plan, medications, possible side effects, patientverbalized understanding. All questions were answered to the best of my ability. This discharge took greater then 30 minutes in planning, reviewing documentation, counseling the patient, and discussing with other team members." ASSESSMENT ASSESSMENT Assessment Severe anemia due to abnormal uterine bleeding Date of Service: Sep 24, 2024 Billing Provider: JOSÉ LUIS MILLS MD Common Visit Codes: 42045-IDK/OBS DISCH DAY >30min TOSHIA OHARA RESIDENT Sep 24, 2024 10:45 JOSÉ LUIS MILLS MD Sep 27, 2024 15:35
[2024-09-24 10:48] VITALS: BP 118/73; PULSE 101; RESP 17; TEMP 97.5; O2SAT 99
== END 2024-09-24 12:09 | disposition home or self-care (01) | DRG 517 ==
LOC: ER 15:07 → OVERFLOW 22:13 → CENTRAL 09-23 23:44
PROVIDERS: ADMIT Student in an Organized Health Care Education/Training Program; ATTEND Student in an Organized Health Care Education/Training Program
PROC: 0UDB7ZZ Extraction of Endometrium, Via Natural or Artificial Opening (ICD-10-PCS; 2024-09-23)
PROC: 30233N1 Transfusion of Nonautologous Red Blood Cells into Peripheral Vein, Percutaneous Approach (ICD-10-PCS; principal; 2024-09-23 22:21)
DX: N92.0 Excessive and frequent menstruation with regular cycle (principal); D62 Acute posthemorrhagic anemia; R65.10 Systemic inflammatory response syndrome (SIRS) of non-infectious origin without acute organ dysfunction; Z79.899 Other long term (current) drug therapy; Z90.49 Acquired absence of other specified parts of digestive tract; Z83.3 Family history of diabetes mellitus; Z82.49 Family history of ischemic heart disease and other diseases of the circulatory system
CPT/HCPCS: 36415; 71045; 76856; 80048; 80053; 81001; 82728; 83540; 83550; 84484; 85007; 85025; 85027; 85045; 85610; 86850; 86900; 86901; 86920; 93005; 99291; G0378; J1100; J1756; J2003; J2250; J2405; J2704; J3490

== ENCOUNTER 2024-12-29 19:22 | Emergency (ER) | payer SELFPAY ==
[~2024-12-29] VITALS: Ht 160 cm; Wt 99.4 kg
[~2024-12-29 19:22] MED LIST changes: -CIPR-173 PO; -DOCU-94 PO; +FERR1TAB36 PO; +IBUP1TAB4 PO; +MEDR5TAB28 PO; -ONDA-144 PO; -PANT40T PO
[2024-12-29] MEDS ORDERED: CLIN1CAP70 PO (21:08)
[2024-12-29] MEDS ORDERED: KETO10TA PO (21:08)
[2024-12-29] MEDS ORDERED: ACET650T12 PO (21:08)
--- NOTE | 2024-12-29 21:08 | ED.PDOC ---
History of Present Illness HPI Comments 29-year-old female, with a history of anemia, presents with chief complaint of lower right molar tooth pain, with the associated facial swelling and pain and limited jaw range of motion. Patient reports sudden and unprovoked and atraumatic onset of to pain, yesterday, with development of remaining symptoms, today. She states on taking Tylenol and only having temporary relief. Patient does not have a current dentist or has been seen for current symptoms prior to today. Denial of any further acute symptoms at this time. REVIEW OF SYSTEMS: General: No fever, no chills, HEENT: Lower right molar to pain, with the associated facial swelling and pain and limited jaw range of motion. No neck pain. No blurry vision Cardiac: No chest pain. No palpitations. Lungs: No shortness of breath, GI: No abdominal pain, no vomiting Musculoskeletal: No joint pain , no back pain Skin: No rash, no wound Neuro: No headache, no dizziness, no syncope PHYSICAL EXAM: General: Awake, alert and oriented. No acute distress. Skin: Skin in warm, dry and intact without rashes or lesions. HEENT: Erythema, warmth, and induration of the right lower cheek full; fractured 1st molar tooth on the bottom right jaw . No submandibular induration, stridor, drooling or posterior pharyngeal edema. Otherwise, the head is normocephalic and atraumatic. Conjunctivae are clear without exudates or hemorrhage. Sclera is non-icteric. Neck: Normal range of motion. No JVD. Cardiac: Regular rate Respiratory: No signs of respiratory distress. No Stridor. Extremities: Upper and lower extremities are atraumatic in appearance without deformity. Neurological: The patient is awake, alert and oriented to person, place, and time with normal speech. Speech is clear. There is no facial asymmetry. Psychiatric: Appropriate mood and affect. Good judgement and insight. Chief Complaint: Tooth Pain Time Seen by MD: 19:56 Primary Care Provider: UNKNOWN Reviewed Notes: Nurses Notes, Medications, Allergies Allergies: Coded Allergies: Penicillins (Verified Allergy, Severe, 12/09/18) Home Meds Active Scripts Acetaminophen (Acetaminophen Er) 650 Mg Tab, 650 MG PO TIDPRN PRN, #15 TAB Prov:BLANCA GERBER MD 12/29/24 Ketorolac Tromethamine (Ketorolac Tromethamine) 10 Mg Tab, 1 TAB PO TID PRN, #15 TAB Prov:BLANCA GERBER MD 12/29/24 Clindamycin Hcl (Clindamycin Hcl) 300 Mg Cap, 1 CAP PO TID, #21 CAP Prov:BLANCA GERBER MD 12/29/24 Ferrous Sulfate (Iron (Ferrous Sulfate)) 50 Mg Tab, 50 MG PO DAILY for 30 Days, #30 TAB Prov:TOSHIA OHARA 09/24/24 Ibuprofen Micronized (Ibuprofen) 400 Mg Tab, 400 MG PO TID for 10 Days, #30 TAB Prov:TOSHIA OHARA 09/24/24 Medroxyprogesterone Acetate (PROVERA) 5 Mg Tab, 1 TAB PO DAILY for 30 Days, #30 TAB 11 Refills Prov:TOSHIA OHARA 09/24/24 Information Source: Patient Mode of Arrival: Ambulatory Past Medical History PAST MEDICAL HISTORY: Anemia Surgical History: Cholecystectomy [employer]PERIMENTAL [employer]CH[employer]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 Was a procedure done?: No Differential Dx Considerations may include: Dental abscess, dental caries, among others X-Ray, Labs, Meds, VS Vital Signs Date Time Temp Pulse Resp B/P (MAP) Pulse Ox O2 Delivery O2 Flow Rate FiO2 12/29/24 22:14 99.0 75 18 127/90 (102) 98 99.0 12/29/24 22:14 75 18 98 Room Air 12/29/24 19:30 100.0 91 16 141/81 98 100.0 Current Medications Medications (Trade) Dose Ordered Sig/Bill Route Start Time Stop Time Status Last Admin Clindamycin HCl (Cleocin Capsule) 450 mg ONCE ONCE PO 12/29/24 21:15 12/29/24 21:16 DC 12/29/24 22:03 Ketorolac Tromethamine (Toradol Injection) 30 mg ONCE ONCE IM 12/29/24 21:15 12/29/24 21:16 DC 12/29/24 22:03 Tramadol HCl (Ultram) 50 mg ONCE ONCE PO 12/29/24 21:15 12/29/24 21:16 DC 12/29/24 22:03 Acetaminophen (Tylenol Tablet) 650 mg ONCE ONCE PO 12/29/24 21:15 12/29/24 21:16 DC 12/29/24 22:04 Time of 1ST Reevaluation: 20:26 Reevaluation 1ST: Unchanged Patient Education/Counseling: Treatment, Need For Follow Up Family Education/Counseling: No Family Present SEPSIS Sepsis Screen Date sepsis recognized/suspect: Dec 29, 2024 Time Sepsis recognized/suspect: 1932 Recent Procedure: No On Antibiotic Therapy: No Respiratory Rate >20: No Heart Rate >90: Yes Temp<36 C (96.8 F) or >38.3 C: No SBP <90 or MAP <65 mmHG: No New Acute Mental Status Change: No Is the patient on CPAP, BIPAP,: No Vital Signs Date Time Temp Pulse Resp B/P (MAP) Pulse Ox O2 Delivery O2 Flow Rate FiO2 12/29/24 22:14 99.0 75 18 127/90 (102) 98 99.0 12/29/24 22:14 75 18 98 Room Air 12/29/24 19:30 100.0 91 16 141/81 98 100.0 Medications Medications Dose Ordered Sig/Bill Route Start Time Stop Time Status Last Admin Dose Admin Acetaminophen 650 mg ONCE ONCE PO 12/29/24 21:15 12/29/24 21:16 DC 12/29/24 22:04 Clindamycin HCl 450 mg ONCE ONCE PO 12/29/24 21:15 12/29/24 21:16 DC 12/29/24 22:03 Ketorolac Tromethamine 30 mg ONCE ONCE IM 12/29/24 21:15 12/29/24 21:16 DC 12/29/24 22:03 Tramadol HCl 50 mg ONCE ONCE PO 12/29/24 21:15 12/29/24 21:16 DC 12/29/24 22:03 Departure 1 Departure Time of Disposition: 21:06 Impression: Primary Impression: Pain, dental Disposition: 01 HOME / SELF CARE / HOMELESS Condition: Stable Additional Instructions: ED DISCHARGE INSTRUCTIONS Instructions: Please read all instructions provided in this packet carefully. Although you have been discharged from the Emergency Department, this does not mean that you have a "clean bill of health". No definitive diagnosis for your symptoms has been made today. It is possible that you are in the process of developing a serious illness. This is why you must return to the ED without fail if any new or worsening symptoms (especially if your symptoms include chest pain, trouble breathing, abdominal pain, fever, headache, confusion, trouble seeing, or trouble walking) It is also very important that you see a dentist within the next week to follow up. If you are unable to get an appointment, return to the ED for re-evaluation. e-Prescriptions Acetaminophen (Acetaminophen Er) 650 Mg Tab 650 MG PO TIDPRN PRN, #15 TAB Prov: BLANCA GERBER MD 12/29/24 Ketorolac Tromethamine (Ketorolac Tromethamine) 10 Mg Tab 1 TAB PO TID PRN, #15 TAB Prov: BLANCA GERBER MD 12/29/24 Clindamycin Hcl (Clindamycin Hcl) 300 Mg Cap 1 CAP PO TID, #21 CAP Prov: BLANCA GERBER MD 12/29/24 Comments 29-year-old female with right dental pain. Right facial swelling suggesting cellulitis. Patient is started on antibiotics in the ED. Patient well-appearing, nontoxic. Advised prompt follow-up with PCP, return to the ED with any new, worsening or concerning symptoms. Critical Care Note Critical Care Time?: No Stability Stability form required: No Heart Score Heart Score: Heart Score Response (Comments) Value History N/A 0 EKG N/A 0 Age N/A 0 Risk Factors N/A 0 Troponin N/A 0 Total 0 I personally scribed for BLANCA GERBER MD ([email or web address]) on 12/29/24 at 21:30. Electronically submitted by Adria Crowe ([email or web address]). BLANCA GERBER MD Dec 29, 2024 21:08
[2024-12-29] MEDS: CLINDAMYCIN HCL 150 MG CAP PO ONE (22:03)
[2024-12-29] MEDS: KETOROLAC TROMETH 30 MG/ML 1ML VIAL IM ONE (22:03)
[2024-12-29] MEDS: ACETAMINOPHEN 325 MG TAB PO ONE (22:04)
[2024-12-29 22:14] VITALS: BP 127/90; PULSE 75; RESP 18; TEMP 99; O2SAT 98
== END 2024-12-29 22:14 | disposition home or self-care (01) ==
LOC: ER 19:22
DX: K08.89 Other specified disorders of teeth and supporting structures (principal); F10.90 Alcohol use, unspecified, uncomplicated; Z90.49 Acquired absence of other specified parts of digestive tract; Z88.0 Allergy status to penicillin; Z79.1 Long term (current) use of non-steroidal anti-inflammatories (NSAID); Z79.899 Other long term (current) drug therapy; Y90.9 Presence of alcohol in blood, level not specified
CPT/HCPCS: 96372; 99284; J1885